=== PATIENT | female | born 1955 | race Caucasian/White ===

== ENCOUNTER 2017-05-28 12:21 | Inpatient (IN) ==
[~2017-05-28 12:21] MED LIST: DIPH/TET/ACEL PERT BOOSTER VACCINE 0.5 ML VIAL IM ONE; LACTATED RINGERS 2,000 ML IV STA
[2017-05-28] MEDS ORDERED: ceFAZolin 1,000 MG VIAL ONE (12:45)
[2017-05-28] MEDS ORDERED: DIPH/TET/ACEL PERT BOOSTER VACCINE 0.5 ML VIAL IM ONE (12:46)
[2017-05-28 12:54] LABS: ABG Base Excess -9.7 MMOL/L (-2.5-2.5); ABG HCO3 16.6 MMOL/L (20-26); ABG Oxygen Saturation 95.8 % (95-100); ABG PH 7.338 (7.35-7.45); ABG PO2 86.7 MM HG (80-95); ABG TCO2 13.9 MMOL/L (23-27)
[2017-05-28 13:17] LABS: Basophils % 0.3 % (0.0-0.8); Eosinophils % 0.1 % (0.00-10.9); Hematocrit 38.3 VOL% (35.7-47.0); Immature Granulocytes % 0.4 %; Immature Granulocytes Absolute 0.03 #; Lymphocytes % 13.9 % (21.3-54.2); Mean Corpuscular HGB Conc 33.9 GM/DL (32-36); Mean Corpuscular Hemoglobin 31 PG (27-34); Mean Corpuscular Volume 90.5 FL (87-102); Mean Platelet Volume 10.9 FL (9.6-12.0); Monocytes # 0.7 10*3/uL (0.11-0.8); Monocytes % 9.1 % (1.7-12.7); Neutrophils # 5.5 10*3/uL (1.4-7.4); Neutrophils % 76.2 % (38.7-73.9); Platelet Count 41 T/CUMM (130-400); Red Blood Count 4.23 MC/CUMM (3.8-5.5); Red Cell Distribution Width 16.2 % (9.3-17.3); White Blood Count 7.3 T/CUMM (4-12)
[2017-05-28 13:22] LABS: Alanine Aminotransferase 41 U/L (13-56); Albumin 2.4 G/DL (3.4-5.0); Alkaline Phosphatase 101 U/L (45-117); Amylase 47 U/L (25-115); Aspartate Amino Transferase 102 U/L (0-37); Blood Urea Nitrogen 32 MG/DL (7-18); Calcium 8.1 MG/DL (8.5-10.1); Glucose 59 MG/DL (74-106); Osmolality,Calculated 309.4 MOS/KG (273-304); Sodium 154 MMOL/L (136-145); Total Protein 6.4 G/DL (6.4-8.3)
[2017-05-28 13:30] LABS: Apearance,Urine CLEAR (Clear); Bacteria,Urine Occasional /HPF (Few); Bilirubin,Urine Negative (Negative); Blood, Urine Negative (Negative); Glucose,Urine (UA) Negative (Negative); Hyaline Casts,Urine 11 /LPF (0-3); Ketones,Urine Negative (Negative); Mucus,Urine Occasional /LPF (Occasional); Nitrite,Urine Negative (Negative); Protein,Urine Negative; RBC,Urine 4 /HPF (0-4); Squamous Epithelial Cell,Urine Occasional /HPF (0-10); Urine Color Amber (Yellow); Urine Specific Gravity 1.014 (1.001-1.035); WBC,Urine 1 /HPF (0-6)
[2017-05-28 13:34] LABS: Hypochromasia 1+
[2017-05-28 14:07] LABS: Barbiturates Screen,Urine Negative (Negative); Benzodiazepines Screen,Urine Positive (Negative); Cannabinoid Screen,Urine Positive (Negative); Opiate Screen,Urine Negative (Negative); Phencyclidine Screen,Urine Negative (Negative)
[2017-05-28 14:19] LABS: INR 1.5; PT Patient Result 15.5 SECS; Partial Thromboplastin Time 27.6 SECS (0-40)
[2017-05-28 14:37] LABS: Lactic Acid 3.5 MMOL/L (0.4-2.0)
[2017-05-28] MEDS ORDERED: PIPERACILLIN/TAZOBACTAM 3,375 MG in SODIUM CHLORIDE 0.9% 100 ML IV STA (14:49)
[2017-05-28] MEDS ORDERED: DEXTROSE 50% 25 GM/50 ML VIAL IV STA (14:51)
[2017-05-28] MEDS ORDERED: DEXTROSE 50% 25 GM/50 ML SYRINGE IV ONE (14:57)
[2017-05-28] MEDS ORDERED: SODIUM CHLORIDE 0.9% 1,000 ML IV SCH (15:00)
[2017-05-28] MEDS ORDERED: ONDANSETRON 4 MG/2 ML VIAL IV PRN (15:38)
[2017-05-28] MEDS ORDERED: ALBUTEROL 2.5 MG/3 ML NEB RESP TX PRN (15:38)
[2017-05-28] MEDS ORDERED: PIPERACILLIN/TAZOBACTAM 3,375 MG VIAL IV ONE (15:52)
[2017-05-28] MEDS ORDERED: POTASSIUM CHLORIDE RIDER 10 MEQ in PREMIX 1 EACH IV PRN (15:57)
[2017-05-28] MEDS ORDERED: PANTOPRAZOLE 40 MG VIAL IV SCH (16:00)
[2017-05-28] MEDS ORDERED: CLINDAMYCIN INJ 600 MG in PREMIX 1 EACH IV SCH (16:00)
[2017-05-28] MEDS ORDERED: ENOXAPARIN 30 MG/0.3 ML SYRINGE SUBCUT SCH ×2 (16:00→16:30)
[2017-05-28] MEDS: ENOXAPARIN 30 MG/0.3 ML SYRINGE SUBCUT SCH (18:33)
[2017-05-28] MEDS: PANTOPRAZOLE 40 MG VIAL IV SCH (18:33)
[2017-05-28] MEDS: SODIUM BICARB INJ 100 MEQ in DEXTROSE 5% 1,000 ML IV SCH (18:33)
[2017-05-28] MEDS: ALBUTEROL/IPRATROPIUM 3 ML NEB RESP TX SCH (19:57)
[2017-05-28] MEDS: MORPHINE 2 MG/1 ML SYRINGE IV PRN (20:16)
[2017-05-28 20:45] LABS: Lactic Acid 3.1 MMOL/L (0.4-2.0)
[2017-05-28 20:59] LABS: Free T4 (Free Thyroxine) 1.29 NG/DL (0.76-1.46); Thyroid Stimulating Hormone 1.08 uIU/ml (0.358-3.74)
[2017-05-28 21:15] LABS: Troponin I Only 1.52 NG/ML (0.00-0.045)
[2017-05-28] MEDS: LACTULOSE 160 GM/240 ML BOTTLE RECTAL SCH (23:00)
[2017-05-29 00:38] LABS: Lactic Acid 2.5 MMOL/L (0.4-2.0)
[2017-05-29] MEDS: PIPERACILLIN/TAZOBACTAM 3,375 MG in SODIUM CHLORIDE 0.9% 100 ML IV SCH ×3 (00:53→16:31)
[2017-05-29] MEDS: MORPHINE 2 MG/1 ML SYRINGE IV PRN (01:12)
[2017-05-29] MEDS: ALBUTEROL/IPRATROPIUM 3 ML NEB RESP TX SCH ×4 (01:36→20:04)
[2017-05-29] MEDS: CLINDAMYCIN INJ 600 MG in PREMIX 1 EACH IV SCH ×3 (02:20→17:49)
[2017-05-29] MEDS: LACTULOSE 160 GM/240 ML BOTTLE RECTAL SCH ×3 (04:10→16:08)
[2017-05-29] MEDS: SODIUM BICARB INJ 100 MEQ in DEXTROSE 5% 1,000 ML IV SCH ×2 (04:36→16:29)
[2017-05-29 07:37] LABS: Basophils % 0.2 % (0.0-0.8); Eosinophils # 0.1 10*3/uL (0.0-0.87); Eosinophils % 0.8 % (0.00-10.9); Hematocrit 24.7 VOL% (35.7-47.0); Immature Granulocytes % 0.4 %; Immature Granulocytes Absolute 0.03 #; Lymphocytes # 2.1 10*3/uL (1.4-4.0); Lymphocytes % 24.7 % (21.3-54.2); Mean Corpuscular Hemoglobin 31 PG (27-34); Mean Corpuscular Volume 89.8 FL (87-102); Mean Platelet Volume 12.4 FL (9.6-12.0); Monocytes # 0.9 10*3/uL (0.11-0.8); Monocytes % 10.5 % (1.7-12.7); Neutrophils # 5.4 10*3/uL (1.4-7.4); Neutrophils % 63.4 % (38.7-73.9); Red Blood Count 2.75 MC/CUMM (3.8-5.5); Red Cell Distribution Width 16.6 % (9.3-17.3); White Blood Count 8.5 T/CUMM (4-12)
[2017-05-29 07:45] LABS: Hemoglobin 8.4 GM/DL (12.0-16.0); Platelet Count 59 T/CUMM (130-400)
[2017-05-29 08:00] LABS: Lactic Acid 2.9 MMOL/L (0.4-2.0)
[2017-05-29 08:01] LABS: Giant Platelets Few; Hypochromasia 1+; Microcytosis Slight; Ovalocytes Slight
[2017-05-29 08:02] LABS: Platelet Estimate Decreased
[2017-05-29 08:25] LABS: Albumin 2.2 G/DL (3.4-5.0); Bilirubin,Total 2.2 MG/DL (0.2-1.0); Calcium 7.5 MG/DL (8.5-10.1); Osmolality,Calculated 310.9 MOS/KG (273-304); Potassium 3.8 MMOL/L (3.5-5.1); Total Protein 5.8 G/DL (6.4-8.3)
[2017-05-29] MEDS: PANTOPRAZOLE 40 MG VIAL IV SCH (09:37)
[2017-05-29] MEDS: ZIPRASIDONE 20 MG/1 ML VIAL IM PRN ×2 (11:45→18:18)
[2017-05-29] MEDS: MUPIROCIN 2% OINT 22 GM TUBE TOP SCH (13:27)
[2017-05-29] MEDS ORDERED: SODIUM CHLORIDE 0.9% 1,000 ML IV PRN (16:15)
[2017-05-29] MEDS ORDERED: ENOXAPARIN 30 MG/0.3 ML SYRINGE SUBCUT SCH (16:30)
[2017-05-29] MEDS: ENOXAPARIN 30 MG/0.3 ML SYRINGE SUBCUT SCH (17:19)
[2017-05-29] MEDS ORDERED: LABETALOL 20 MG/4 ML SYRINGE IV PRN (19:16)
[2017-05-29] MEDS ORDERED: SUCCINYLCHOLINE 200 MG/10 ML VIAL ONE (19:28)
[2017-05-29] MEDS ORDERED: ETOMIDATE 20 MG/10 ML VIAL IV ONE (19:28)
[2017-05-29] MEDS ORDERED: PROPOFOL 0 MG/0 ML BOTTLE IV ONE (19:31)
[2017-05-29 19:44] LABS: ABG Base Excess 0.8 MMOL/L (-2.5-2.5); ABG HCO3 22.5 MMOL/L (20-26); ABG Oxygen Saturation 96.5 % (95-100); ABG PCO2 25.8 MM HG (35-48); ABG PH 7.558 (7.35-7.45); ABG PO2 91.3 MM HG (80-95); ABG TCO2 23.3 MMOL/L (23-27)
[2017-05-29 20:25] LABS: % Iron Saturation 45.2 % (18-50)
[2017-05-29] MEDS ORDERED: LACTULOSE 20 GM/30 ML UDCUP PO SCH (21:00)
[2017-05-29 21:23] LABS: Hepatitis A Ab IgM Quant 0.14 Index; Hepatitis A Ab IgM Result Negative (Negative); Hepatitis B Core IgM Quant 0.18 Index; Hepatitis B Core IgM Result Negative (Negative); Hepatitis B Surface Ag Quant 0.12 Index; Hepatitis B Surface Ag Result Negative (Negative); Hepatitis C Virus Ab Quant > 11.00 Index; Hepatitis C Virus Ab Result Positive (Negative)
[2017-05-29] MEDS: LACTULOSE 20 GM/30 ML UDCUP NG SCH (21:29)
[2017-05-29] MEDS: FOLIC ACID IV SCH (21:31)
[2017-05-29] MEDS: [UNRECOGNIZED DRUG - OTHER] IV SCH (21:31)
[2017-05-29] MEDS: SODIUM BICARB IV SCH (21:31)
[2017-05-29] MEDS: MULTIVITAMIN IV SCH (21:31)
[2017-05-29] MEDS: THIAMINE 200 MG/2 ML VIAL IV SCH (23:03)
[2017-05-30] MEDS: PIPERACILLIN/TAZOBACTAM 3,375 MG in SODIUM CHLORIDE 0.9% 100 ML IV SCH ×4 (00:08→23:49)
[2017-05-30] MEDS: CLINDAMYCIN INJ 600 MG in PREMIX 1 EACH IV SCH ×3 (02:56→17:20)
[2017-05-30] MEDS: ZIPRASIDONE 20 MG/1 ML VIAL IM PRN ×3 (04:56→20:36)
[2017-05-30 05:26] LABS: Albumin 2.1 G/DL (3.4-5.0); Bilirubin,Direct 1.33 MG/DL (0.0-0.20); Bilirubin,Indirect 1.5 MG/DL (0.0-1.0); Bilirubin,Total 2.8 MG/DL (0.2-1.0); Total Protein 5.5 G/DL (6.4-8.3)
[2017-05-30 05:52] LABS: Ammonia 178 UMOL/L (11-32)
[2017-05-30 06:24] LABS: Prealbumin 5.4 MG/DL (20-40)
[2017-05-30] MEDS: ALBUTEROL/IPRATROPIUM 3 ML NEB RESP TX SCH ×3 (07:19→19:55)
[2017-05-30] MEDS: LACTULOSE 20 GM/30 ML UDCUP NG SCH ×4 (09:00→20:37)
[2017-05-30] MEDS: PANTOPRAZOLE 40 MG VIAL IV SCH (09:15)
[2017-05-30] MEDS: MUPIROCIN 2% OINT 22 GM TUBE TOP SCH (09:15)
[2017-05-30] MEDS: MORPHINE 2 MG/1 ML SYRINGE IV PRN ×3 (11:40→23:49)
[2017-05-30] MEDS ORDERED: DEXTROSE 50% 25 GM/50 ML VIAL IV PRN (15:07)
[2017-05-30] MEDS ORDERED: GLUCAGON 1 MG VIAL IM PRN (15:07)
[2017-05-30] MEDS: INSULIN REGULAR 100 UNIT/ML SUBCUT SCH ×2 (16:00→20:36)
[2017-05-30] MEDS: FAT EMULSION 20% 250 ML IV SCH (16:05)
[2017-05-30] MEDS ORDERED: DEXT IV SCH (17:00)
[2017-05-30] MEDS ORDERED: LYTE IV SCH (17:00)
[2017-05-30] MEDS ORDERED: DEXTROSE 10% 1,000 ML IV PRN (17:00)
[2017-05-30] MEDS ORDERED: AMINO ACIDS IV SCH (17:00)
[2017-05-30] MEDS ORDERED: INSULIN REGULAR 100 UNIT/ML SUBCUT SCH (18:00)
[2017-05-30] MEDS: MULTIVITAMIN IV SCH (20:37)
[2017-05-30] MEDS: SODIUM BICARB IV SCH (20:37)
[2017-05-30] MEDS: FOLIC ACID IV SCH (20:37)
[2017-05-30] MEDS: [UNRECOGNIZED DRUG - OTHER] IV SCH (20:37)
[2017-05-30] MEDS: THIAMINE 200 MG/2 ML VIAL IV SCH (22:24)
[2017-05-31] MEDS: ALBUTEROL/IPRATROPIUM 3 ML NEB RESP TX SCH ×4 (01:00→19:41)
[2017-05-31] MEDS: INSULIN REGULAR 100 UNIT/ML SUBCUT SCH ×6 (01:15→20:51)
[2017-05-31] MEDS: CLINDAMYCIN INJ 600 MG in PREMIX 1 EACH IV SCH ×3 (02:24→17:50)
[2017-05-31 05:31] LABS: Basophils % 0.7 % (0.0-0.8); Eosinophils # 0.2 10*3/uL (0.0-0.87); Eosinophils % 4.4 % (0.00-10.9); Hematocrit 22.8 VOL% (35.7-47.0); Hemoglobin 7.5 GM/DL (12.0-16.0); Immature Granulocytes % 0.9 %; Immature Granulocytes Absolute 0.04 #; Lymphocytes # 1.3 10*3/uL (1.4-4.0); Lymphocytes % 29.7 % (21.3-54.2); Mean Corpuscular HGB Conc 32.9 GM/DL (32-36); Mean Corpuscular Hemoglobin 31 PG (27-34); Mean Corpuscular Volume 94.2 FL (87-102); Mean Platelet Volume 11.7 FL (9.6-12.0); Monocytes # 0.6 10*3/uL (0.11-0.8); Monocytes % 13.8 % (1.7-12.7); Neutrophils # 2.2 10*3/uL (1.4-7.4); Neutrophils % 50.5 % (38.7-73.9); Red Blood Count 2.42 MC/CUMM (3.8-5.5); Red Cell Distribution Width 16.1 % (9.3-17.3); White Blood Count 4.3 T/CUMM (4-12)
[2017-05-31 05:33] LABS: Platelet Count 47 T/CUMM (130-400)
[2017-05-31 05:54] LABS: Hypochromasia 1+; Ovalocytes Slight; Platelet Estimate Decreased
[2017-05-31 05:55] LABS: Microcytosis Slight
[2017-05-31 06:06] LABS: Albumin 2.3 G/DL (3.4-5.0); Bilirubin,Direct 1.7 MG/DL (0.0-0.20); Bilirubin,Indirect 2.1 MG/DL (0.0-1.0); Bilirubin,Total 3.8 MG/DL (0.2-1.0); Total Protein 5.6 G/DL (6.4-8.3)
[2017-05-31 06:07] LABS: Ammonia 74 UMOL/L (11-32)
[2017-05-31 06:09] LABS: Albumin 2.1 G/DL (3.4-5.0); Bilirubin,Total 3.5 MG/DL (0.2-1.0); Calcium 7.4 MG/DL (8.5-10.1); Osmolality,Calculated 294.6 MOS/KG (273-304); Potassium 3.7 MMOL/L (3.5-5.1); Total Protein 5.6 G/DL (6.4-8.3)
[2017-05-31] MEDS: PIPERACILLIN/TAZOBACTAM 3,375 MG in SODIUM CHLORIDE 0.9% 100 ML IV SCH ×2 (07:30→16:00)
[2017-05-31] MEDS: ZIPRASIDONE 20 MG/1 ML VIAL IM PRN (08:40)
[2017-05-31] MEDS: PANTOPRAZOLE 40 MG VIAL IV SCH (08:45)
[2017-05-31] MEDS: MORPHINE 2 MG/1 ML SYRINGE IV PRN ×3 (08:55→21:27)
[2017-05-31] MEDS: MUPIROCIN 2% OINT 22 GM TUBE TOP SCH (09:00)
[2017-05-31] MEDS: LACTULOSE 20 GM/30 ML UDCUP NG SCH ×4 (09:00→20:52)
[2017-05-31] MEDS ORDERED: SODIUM CHLORIDE 0.9% 1,000 ML IV PRN (09:12)
[2017-05-31] MEDS: FAT EMULSION 20% 250 ML IV SCH (16:00)
[2017-05-31] MEDS ORDERED: AMINO ACIDS IV SCH (17:00)
[2017-05-31] MEDS ORDERED: LYTE IV SCH (17:00)
[2017-05-31] MEDS ORDERED: DEXT IV SCH (17:00)
[2017-05-31] MEDS: FOLIC ACID IV SCH (20:53)
[2017-05-31] MEDS: MULTIVITAMIN IV SCH (20:53)
[2017-05-31] MEDS: SODIUM BICARB IV SCH (20:53)
[2017-05-31] MEDS: [UNRECOGNIZED DRUG - OTHER] IV SCH (20:53)
[2017-05-31] MEDS: THIAMINE 200 MG/2 ML VIAL IV SCH (21:28)
[2017-06-01] MEDS: ALBUTEROL/IPRATROPIUM 3 ML NEB RESP TX SCH ×5 (01:39→19:54)
[2017-06-01] MEDS: CLINDAMYCIN INJ 600 MG in PREMIX 1 EACH IV SCH ×3 (02:00→18:40)
[2017-06-01] MEDS: INSULIN REGULAR 100 UNIT/ML SUBCUT SCH ×6 (02:15→20:45)
[2017-06-01 04:32] LABS: Basophils % 0.7 % (0.0-0.8); Eosinophils # 0.3 10*3/uL (0.0-0.87); Eosinophils % 4.2 % (0.00-10.9); Hematocrit 27.1 VOL% (35.7-47.0); Hemoglobin 9.1 GM/DL (12.0-16.0); Immature Granulocytes % 2.7 %; Immature Granulocytes Absolute 0.16 #; Lymphocytes # 1.4 10*3/uL (1.4-4.0); Lymphocytes % 22.8 % (21.3-54.2); Mean Corpuscular HGB Conc 33.6 GM/DL (32-36); Mean Corpuscular Hemoglobin 31 PG (27-34); Mean Corpuscular Volume 93.1 FL (87-102); Mean Platelet Volume 11.9 FL (9.6-12.0); Monocytes % 16.6 % (1.7-12.7); NRBC # 0.04 10*3/uL; Neutrophils # 3.2 10*3/uL (1.4-7.4); Platelet Count 57 T/CUMM (130-400); Red Blood Count 2.91 MC/CUMM (3.8-5.5); Red Cell Distribution Width 16.4 % (9.3-17.3)
[2017-06-01 04:57] LABS: Albumin 2.1 G/DL (3.4-5.0); Bilirubin,Direct 1.72 MG/DL (0.0-0.20); Bilirubin,Indirect 1.9 MG/DL (0.0-1.0); Bilirubin,Total 3.6 MG/DL (0.2-1.0); Total Protein 5.6 G/DL (6.4-8.3)
[2017-06-01 04:59] LABS: Albumin 2.6 G/DL (3.4-5.0); Bilirubin,Total 0.6 MG/DL (0.2-1.0); Osmolality,Calculated 275.1 MOS/KG (273-304); Potassium 4.1 MMOL/L (3.5-5.1); Total Protein 5.3 G/DL (6.4-8.3)
[2017-06-01 05:03] LABS: Eosinophils 6 % (0-10); Lymphocytes 17 % (20-55); Segmented Neutrophils 63 % (50-85); Total Cells Counted 100
[2017-06-01 05:04] LABS: Giant Platelets Few; Hypochromasia 1+; Ovalocytes Slight; Platelet Estimate Decreased
[2017-06-01 06:18] LABS: Basophils % 0.7 % (0.0-0.8); Eosinophils # 0.2 10*3/uL (0.0-0.87); Hematocrit 27.6 VOL% (35.7-47.0); Hemoglobin 9.2 GM/DL (12.0-16.0); Immature Granulocytes % 2.9 %; Immature Granulocytes Absolute 0.17 #; Lymphocytes # 1.4 10*3/uL (1.4-4.0); Lymphocytes % 23.2 % (21.3-54.2); Mean Corpuscular HGB Conc 33.3 GM/DL (32-36); Mean Corpuscular Hemoglobin 31 PG (27-34); Mean Corpuscular Volume 93.6 FL (87-102); Mean Platelet Volume 12.4 FL (9.6-12.0); Monocytes # 0.9 10*3/uL (0.11-0.8); NRBC # 0.04 10*3/uL; Neutrophils # 3.1 10*3/uL (1.4-7.4); Neutrophils % 53.2 % (38.7-73.9); Red Blood Count 2.95 MC/CUMM (3.8-5.5); Red Cell Distribution Width 16.3 % (9.3-17.3); White Blood Count 5.8 T/CUMM (4-12)
[2017-06-01 06:21] LABS: Platelet Count 62 T/CUMM (130-400)
[2017-06-01 06:40] LABS: Ammonia 52 UMOL/L (11-32)
[2017-06-01 06:43] LABS: Band Neutrophils 1 % (0-10); Eosinophils 7 % (0-10); Giant Platelets Few; Hypochromasia 1+; Lymphocytes 23 % (20-55); Microcytosis Slight; Nucleated Red Blood Cells 1 (0-5); Ovalocytes Slight; Platelet Estimate Decreased; Segmented Neutrophils 59 % (50-85); Total Cells Counted 100
[2017-06-01 07:11] LABS: Bilirubin,Total 3.9 MG/DL (0.2-1.0); Calcium 7.3 MG/DL (8.5-10.1); Osmolality,Calculated 293.6 MOS/KG (273-304); Potassium 3.6 MMOL/L (3.5-5.1); Total Protein 5.6 G/DL (6.4-8.3)
[2017-06-01] MEDS: PIPERACILLIN/TAZOBACTAM 3,375 MG in SODIUM CHLORIDE 0.9% 100 ML IV SCH ×4 (07:53→23:56)
[2017-06-01] MEDS: MORPHINE 2 MG/1 ML SYRINGE IV PRN (07:59)
[2017-06-01] MEDS: LACTULOSE 20 GM/30 ML UDCUP NG SCH (08:01)
[2017-06-01] MEDS: PANTOPRAZOLE 40 MG VIAL IV SCH (08:01)
[2017-06-01] MEDS: MUPIROCIN 2% OINT 22 GM TUBE TOP SCH (08:01)
[2017-06-01] MEDS: LACTULOSE 20 GM/30 ML UDCUP PO SCH ×3 (14:46→21:07)
[2017-06-01] MEDS: FAT EMULSION 20% 250 ML IV SCH (16:41)
[2017-06-01] MEDS: MORPHINE 4 MG/1 ML VIAL IV PRN (17:37)
[2017-06-01] MEDS: THIAMINE 200 MG/2 ML VIAL IV SCH (21:03)
[2017-06-01] MEDS: MULTIVITAMIN IV SCH (21:07)
[2017-06-01] MEDS: SODIUM BICARB IV SCH (21:07)
[2017-06-01] MEDS: FOLIC ACID IV SCH (21:07)
[2017-06-01] MEDS: [UNRECOGNIZED DRUG - OTHER] IV SCH (21:07)
[2017-06-02] MEDS: CLINDAMYCIN INJ 600 MG in PREMIX 1 EACH IV SCH ×3 (01:20→17:41)
[2017-06-02] MEDS: ALBUTEROL/IPRATROPIUM 3 ML NEB RESP TX SCH ×4 (02:00→20:28)
[2017-06-02] MEDS: MORPHINE 4 MG/1 ML VIAL IV PRN (03:59)
[2017-06-02 04:16] LABS: Ammonia 62 UMOL/L (11-32)
[2017-06-02 04:21] LABS: Calcium 7.3 MG/DL (8.5-10.1); Potassium 3.8 MMOL/L (3.5-5.1)
[2017-06-02 04:24] LABS: Bilirubin,Direct 2.4 MG/DL (0.0-0.20); Bilirubin,Indirect 2.2 MG/DL (0.0-1.0); Bilirubin,Total 4.6 MG/DL (0.2-1.0); Total Protein 5.7 G/DL (6.4-8.3)
[2017-06-02] MEDS: PANTOPRAZOLE 40 MG VIAL IV SCH (08:02)
[2017-06-02] MEDS: PIPERACILLIN/TAZOBACTAM 3,375 MG in SODIUM CHLORIDE 0.9% 100 ML IV SCH ×3 (08:02→23:36)
[2017-06-02] MEDS: LACTULOSE 20 GM/30 ML UDCUP PO SCH ×4 (08:02→20:26)
[2017-06-02] MEDS: INSULIN REGULAR 100 UNIT/ML SUBCUT SCH ×4 (08:38→20:24)
[2017-06-02] MEDS: MUPIROCIN 2% OINT 22 GM TUBE TOP SCH (09:33)
[2017-06-02] MEDS: THIAMINE 200 MG/2 ML VIAL IV SCH ×2 (20:26→21:01)
[2017-06-02] MEDS: [UNRECOGNIZED DRUG - OTHER] IV SCH (20:31)
[2017-06-02] MEDS: MULTIVITAMIN IV SCH (20:31)
[2017-06-02] MEDS: FOLIC ACID IV SCH (20:31)
[2017-06-02] MEDS: SODIUM BICARB IV SCH (20:31)
[2017-06-02] MEDS ORDERED: KETOROLAC 15 MG/1 ML VIAL IV ONE (21:00)
[2017-06-03] MEDS: ALBUTEROL/IPRATROPIUM 3 ML NEB RESP TX SCH ×4 (00:22→19:33)
[2017-06-03] MEDS: CLINDAMYCIN INJ 600 MG in PREMIX 1 EACH IV SCH ×3 (02:33→20:39)
[2017-06-03 07:06] LABS: Calcium 7.2 MG/DL (8.5-10.1); Osmolality,Calculated 286.3 MOS/KG (273-304); Potassium 3.1 MMOL/L (3.5-5.1)
[2017-06-03 07:07] LABS: Albumin 1.9 G/DL (3.4-5.0); Bilirubin,Direct 2.32 MG/DL (0.0-0.20); Bilirubin,Indirect 1.9 MG/DL (0.0-1.0); Bilirubin,Total 4.2 MG/DL (0.2-1.0); Total Protein 5.4 G/DL (6.4-8.3)
[2017-06-03 07:09] LABS: Ammonia 50 UMOL/L (11-32)
[2017-06-03 07:10] LABS: Basophils # 0.1 10*3/uL (0.0-0.2); Eosinophils # 0.3 10*3/uL (0.0-0.87); Eosinophils % 4.6 % (0.00-10.9); Hematocrit 26.2 VOL% (35.7-47.0); Hemoglobin 8.8 GM/DL (12.0-16.0); Immature Granulocytes % 3.7 %; Immature Granulocytes Absolute 0.25 #; Lymphocytes # 1.7 10*3/uL (1.4-4.0); Lymphocytes % 25.3 % (21.3-54.2); Mean Corpuscular HGB Conc 33.6 GM/DL (32-36); Mean Corpuscular Hemoglobin 31 PG (27-34); Mean Corpuscular Volume 92.3 FL (87-102); Monocytes # 1.5 10*3/uL (0.11-0.8); Neutrophils # 2.9 10*3/uL (1.4-7.4); Neutrophils % 43.4 % (38.7-73.9); Platelet Count 90 T/CUMM (130-400); Red Blood Count 2.84 MC/CUMM (3.8-5.5); Red Cell Distribution Width 18.6 % (9.3-17.3); White Blood Count 6.8 T/CUMM (4-12)
[2017-06-03] MEDS: INSULIN REGULAR 100 UNIT/ML SUBCUT SCH ×4 (07:44→20:45)
[2017-06-03 08:04] LABS: Band Neutrophils 3 % (0-10); Eosinophils 2 % (0-10); Lymphocytes 30 % (20-55); Macrocytosis 1+; Platelet Estimate Increased; Segmented Neutrophils 57 % (50-85); Total Cells Counted 100
[2017-06-03] MEDS: LACTULOSE 20 GM/30 ML UDCUP PO SCH ×4 (08:36→20:45)
[2017-06-03] MEDS: PANTOPRAZOLE 40 MG VIAL IV SCH (08:36)
[2017-06-03] MEDS: FUROSEMIDE 20 MG TABLET PO SCH (08:36)
[2017-06-03] MEDS: POTASSIUM CHLORIDE 20 MEQ TABLET PO PRN ×3 (08:37→19:03)
[2017-06-03] MEDS: SPIRONOLACTONE 50 MG TABLET PO SCH (08:37)
[2017-06-03] MEDS: MUPIROCIN 2% OINT 22 GM TUBE TOP SCH (08:37)
[2017-06-03] MEDS: PIPERACILLIN/TAZOBACTAM 3,375 MG in SODIUM CHLORIDE 0.9% 100 ML IV SCH ×3 (08:37→23:25)
[2017-06-03] MEDS: [UNRECOGNIZED DRUG - OTHER] IV SCH (20:38)
[2017-06-03] MEDS: MULTIVITAMIN IV SCH (20:38)
[2017-06-03] MEDS: SODIUM BICARB IV SCH (20:38)
[2017-06-03] MEDS: FOLIC ACID IV SCH (20:38)
[2017-06-03] MEDS: THIAMINE 200 MG/2 ML VIAL IV SCH (21:14)
[2017-06-04] MEDS: ALBUTEROL/IPRATROPIUM 3 ML NEB RESP TX SCH ×4 (00:13→19:15)
[2017-06-04] MEDS: CLINDAMYCIN INJ 600 MG in PREMIX 1 EACH IV SCH ×3 (04:07→21:30)
[2017-06-04] MEDS: POTASSIUM CHLORIDE 20 MEQ TABLET PO PRN ×3 (04:43→18:18)
[2017-06-04 06:49] LABS: Ammonia 33 UMOL/L (11-32)
[2017-06-04 06:56] LABS: Osmolality,Calculated 281.5 MOS/KG (273-304); Potassium 3.2 MMOL/L (3.5-5.1); Prealbumin 3.1 MG/DL (20-40)
[2017-06-04 07:04] LABS: Albumin 1.8 G/DL (3.4-5.0); Bilirubin,Direct 2.16 MG/DL (0.0-0.20); Bilirubin,Indirect 1.5 MG/DL (0.0-1.0); Bilirubin,Total 3.7 MG/DL (0.2-1.0); Total Protein 5.2 G/DL (6.4-8.3)
[2017-06-04] MEDS: INSULIN REGULAR 100 UNIT/ML SUBCUT SCH ×4 (07:32→21:41)
[2017-06-04] MEDS: PANTOPRAZOLE 40 MG VIAL IV SCH ×2 (07:33→08:04)
[2017-06-04] MEDS: PIPERACILLIN/TAZOBACTAM 3,375 MG in SODIUM CHLORIDE 0.9% 100 ML IV SCH ×2 (07:33→16:32)
[2017-06-04] MEDS: MUPIROCIN 2% OINT 22 GM TUBE TOP SCH (08:03)
[2017-06-04] MEDS: FUROSEMIDE 20 MG TABLET PO SCH (08:03)
[2017-06-04] MEDS: LACTULOSE 20 GM/30 ML UDCUP PO SCH ×2 (08:03→20:27)
[2017-06-04] MEDS: SPIRONOLACTONE 50 MG TABLET PO SCH (08:03)
[2017-06-04] MEDS: DESITIN 4OZ/NYSTATIN 15 GRAM MIXTURE PASTE TOP SCH (08:04)
[2017-06-04] MEDS ORDERED: DIAZEPAM 5 MG TABLET PO ONE (08:22)
[2017-06-04 08:52] LABS: Basophils # 0.1 10*3/uL (0.0-0.2); Basophils % 0.6 % (0.0-0.8); Eosinophils # 0.3 10*3/uL (0.0-0.87); Eosinophils % 3.1 % (0.00-10.9); Hematocrit 26.8 VOL% (35.7-47.0); Immature Granulocytes % 2.1 %; Immature Granulocytes Absolute 0.17 #; Lymphocytes # 1.9 10*3/uL (1.4-4.0); Lymphocytes % 22.8 % (21.3-54.2); Mean Corpuscular HGB Conc 33.6 GM/DL (32-36); Mean Corpuscular Hemoglobin 31 PG (27-34); Mean Corpuscular Volume 92.1 FL (87-102); Mean Platelet Volume 11.5 FL (9.6-12.0); Monocytes # 1.5 10*3/uL (0.11-0.8); Monocytes % 18.3 % (1.7-12.7); Neutrophils # 4.3 10*3/uL (1.4-7.4); Neutrophils % 53.1 % (38.7-73.9); Platelet Count 114 T/CUMM (130-400); Red Blood Count 2.91 MC/CUMM (3.8-5.5); White Blood Count 8.2 T/CUMM (4-12)
[2017-06-04 09:00] LABS: INR 1.3; PT Patient Result 13.1 SECS
[2017-06-04 09:52] LABS: Band Neutrophils 3 % (0-10); Eosinophils 5 % (0-10); Giant Platelets Few; Hypochromasia 1+; Lymphocytes 17 % (20-55); Microcytosis Slight; Platelet Estimate Decreased; Segmented Neutrophils 61 % (50-85); Total Cells Counted 100
[2017-06-04] MEDS: [UNRECOGNIZED DRUG - OTHER] IV SCH (20:27)
[2017-06-04] MEDS: FOLIC ACID IV SCH (20:27)
[2017-06-04] MEDS: MULTIVITAMIN IV SCH (20:27)
[2017-06-04] MEDS: SODIUM BICARB IV SCH (20:27)
[2017-06-05] MEDS: ALBUTEROL/IPRATROPIUM 3 ML NEB RESP TX SCH ×3 (00:27→14:23)
[2017-06-05] MEDS: THIAMINE 200 MG/2 ML VIAL IV SCH (01:28)
[2017-06-05] MEDS: DESITIN 4OZ/NYSTATIN 15 GRAM MIXTURE PASTE TOP SCH ×2 (01:40→08:12)
[2017-06-05] MEDS: PIPERACILLIN/TAZOBACTAM 3,375 MG in SODIUM CHLORIDE 0.9% 100 ML IV SCH ×2 (01:59→08:10)
[2017-06-05] MEDS: CLINDAMYCIN INJ 600 MG in PREMIX 1 EACH IV SCH ×2 (06:09→12:09)
[2017-06-05 06:44] LABS: Basophils % 0.5 % (0.0-0.8); Eosinophils # 0.2 10*3/uL (0.0-0.87); Eosinophils % 2.4 % (0.00-10.9); Hematocrit 25.7 VOL% (35.7-47.0); Hemoglobin 8.6 GM/DL (12.0-16.0); Immature Granulocytes % 2.5 %; Lymphocytes # 2.1 10*3/uL (1.4-4.0); Lymphocytes % 26.9 % (21.3-54.2); Mean Corpuscular HGB Conc 33.5 GM/DL (32-36); Mean Corpuscular Hemoglobin 31 PG (27-34); Mean Corpuscular Volume 91.5 FL (87-102); Mean Platelet Volume 11.6 FL (9.6-12.0); Monocytes # 1.2 10*3/uL (0.11-0.8); Monocytes % 15.3 % (1.7-12.7); Neutrophils # 4.2 10*3/uL (1.4-7.4); Neutrophils % 52.4 % (38.7-73.9); Platelet Count 116 T/CUMM (130-400); Red Blood Count 2.81 MC/CUMM (3.8-5.5); Red Cell Distribution Width 19.4 % (9.3-17.3)
[2017-06-05 07:12] LABS: Calcium 7.1 MG/DL (8.5-10.1); Osmolality,Calculated 279.5 MOS/KG (273-304); Potassium 3.6 MMOL/L (3.5-5.1)
[2017-06-05] MEDS: INSULIN REGULAR 100 UNIT/ML SUBCUT SCH ×2 (07:56→11:50)
[2017-06-05] MEDS: FUROSEMIDE 20 MG TABLET PO SCH (08:12)
[2017-06-05] MEDS: LACTULOSE 20 GM/30 ML UDCUP PO SCH (08:12)
[2017-06-05] MEDS: MUPIROCIN 2% OINT 22 GM TUBE TOP SCH (08:12)
[2017-06-05] MEDS: PANTOPRAZOLE 40 MG VIAL IV SCH (08:12)
[2017-06-05] MEDS: SPIRONOLACTONE 50 MG TABLET PO SCH (08:12)
[2017-06-05 12:45] VITALS: BP 141/58
== END 2017-06-05 14:30 | disposition home health service (06) | DRG 683 ==
LOC: EDUNIT# → EDBD → N.ED 12:21 → N.EDINP 15:01 → SUPCPDRO 15:01 → SUATTDRO 15:01 → N.ICU 15:01 → N.EDINP 15:19 → N.ICU 16:08 → N.ED 16:30 → N.ICU 16:30 → N.5E 06-02 09:26
PROVIDERS: ADMIT Hospitalist; ATTEND Hospitalist

== ENCOUNTER 2017-11-15 16:16 | Inpatient (IN) ==
[2017-11-15] MEDS ORDERED: ALUM/MAG/SIMETH/LIDO VISC 1:1 30 ML BOTTLE PO STA (16:57)
[2017-11-15] MEDS ORDERED: HYDROmorphone 2 MG/1 ML VIAL IV STA (16:57)
[2017-11-15] MEDS ORDERED: PANTOPRAZOLE 40 MG VIAL IV STA (16:57)
[2017-11-15] MEDS ORDERED: ONDANSETRON 4 MG/2 ML VIAL IV STA (16:57)
[2017-11-15 18:14] LABS: Basophils % 0.2 % (0.0-0.8); Hematocrit 31.7 VOL% (35.7-47.0); Hemoglobin 10.6 GM/DL (12.0-16.0); Immature Granulocytes % 0.2 %; Immature Granulocytes Absolute 0.01 #; Lymphocytes # 0.6 10*3/uL (1.4-4.0); Lymphocytes % 9.9 % (21.3-54.2); Mean Corpuscular HGB Conc 33.4 GM/DL (32-36); Mean Corpuscular Hemoglobin 31 PG (27-34); Mean Corpuscular Volume 93.2 FL (87-102); Mean Platelet Volume 12.3 FL (9.6-12.0); Monocytes # 0.3 10*3/uL (0.11-0.8); Neutrophils # 5.4 10*3/uL (1.4-7.4); Neutrophils % 84.7 % (38.7-73.9); Platelet Count 98 T/CUMM (130-400); Red Cell Distribution Width 14.2 % (9.3-17.3); White Blood Count 6.4 T/CUMM (4-12)
[2017-11-15 18:30] LABS: Ammonia 37 UMOL/L (11-32)
[2017-11-15 18:35] LABS: Alanine Aminotransferase 19 U/L (13-56); Albumin 2.5 G/DL (3.4-5.0); Alkaline Phosphatase 102 U/L (45-117); Amylase 39 U/L (25-115); Aspartate Amino Transferase 33 U/L (0-37); Blood Urea Nitrogen 11 MG/DL (7-18); Calcium 8.1 MG/DL (8.5-10.1); Glucose 108 MG/DL (74-106); Osmolality,Calculated 282.1 MOS/KG (273-304); Potassium 3.6 MMOL/L (3.5-5.1); Sodium 142 MMOL/L (136-145); Total Protein 7.4 G/DL (6.4-8.3)
[2017-11-15 18:44] LABS: Apearance,Urine CLEAR (Clear); Bacteria,Urine Occasional /HPF (Few); Bilirubin,Urine Negative (Negative); Blood, Urine Negative (Negative); Glucose,Urine (UA) Negative (Negative); Hyaline Casts,Urine 21 /LPF (0-3); Ketones,Urine Negative (Negative); Mucus,Urine Few /LPF (Occasional); Nitrite,Urine Negative (Negative); Protein,Urine 30 MG/DL; RBC,Urine 1 /HPF (0-4); Squamous Epithelial Cell,Urine Occasional /HPF (0-10); Urine Color Amber (Yellow); Urine Specific Gravity 1.018 (1.001-1.035); WBC,Urine 3 /HPF (0-6)
[2017-11-15] MEDS ORDERED: MAGNESIUM SULF RIDER 2 GM in PREMIX 1 EACH IV STA (18:50)
[2017-11-15 18:53] LABS: Barbiturates Screen,Urine Negative (Negative); Benzodiazepines Screen,Urine Negative (Negative); Cannabinoid Screen,Urine Positive (Negative); Opiate Screen,Urine Negative (Negative); Phencyclidine Screen,Urine Negative (Negative)
[2017-11-15 19:40] LABS: INR 1.3; PT Patient Result 13.1 SECS; Partial Thromboplastin Time 25.9 SECS (0-40)
[2017-11-15] MEDS: PIPERACILLIN/TAZOBACTAM 3,375 MG in SODIUM CHLORIDE 0.9% 100 ML IV SCH (20:29)
[2017-11-15] MEDS ORDERED: MAGNESIUM SULF RIDER 4 GM in PREMIX 1 EACH IV PRN (21:10)
[2017-11-15] MEDS ORDERED: MAGNESIUM SULF RIDER 2 GM in PREMIX 1 EACH IV PRN (21:10)
[2017-11-15] MEDS: MORPHINE 4 MG/1 ML VIAL IV PRN (22:00)
[2017-11-15] MEDS ORDERED: LACTULOSE 20 GM/30 ML UDCUP PO ONE (22:00)
[2017-11-15] MEDS: ONDANSETRON 4 MG/2 ML VIAL IV PRN (22:01)
[2017-11-15] MEDS: SODIUM CHLORIDE 0.9% 500 ML IV SCH (23:17)
[2017-11-16] MEDS: MORPHINE 4 MG/1 ML VIAL IV PRN ×6 (01:48→21:44)
[2017-11-16] MEDS: SODIUM CHLORIDE 0.9% 500 ML IV SCH (03:13)
[2017-11-16] MEDS: PIPERACILLIN/TAZOBACTAM 3,375 MG in SODIUM CHLORIDE 0.9% 100 ML IV SCH ×3 (03:27→18:58)
[2017-11-16] MEDS: LEVOTHYROXINE 100 MCG TABLET PO SCH (05:59)
[2017-11-16 06:06] LABS: Basophils % 0.3 % (0.0-0.8); Eosinophils % 0.1 % (0.00-10.9); Hematocrit 26.7 VOL% (35.7-47.0); Hemoglobin 9.1 GM/DL (12.0-16.0); Immature Granulocytes % 0.4 %; Immature Granulocytes Absolute 0.03 #; Lymphocytes % 15.1 % (21.3-54.2); Mean Corpuscular HGB Conc 34.1 GM/DL (32-36); Mean Corpuscular Hemoglobin 31 PG (27-34); Mean Corpuscular Volume 91.4 FL (87-102); Mean Platelet Volume 12.4 FL (9.6-12.0); Monocytes # 0.9 10*3/uL (0.11-0.8); Monocytes % 13.1 % (1.7-12.7); Neutrophils # 4.9 10*3/uL (1.4-7.4); Platelet Count 84 T/CUMM (130-400); Red Blood Count 2.92 MC/CUMM (3.8-5.5); Red Cell Distribution Width 14.7 % (9.3-17.3); White Blood Count 6.9 T/CUMM (4-12)
[2017-11-16 06:27] LABS: Albumin 2.2 G/DL (3.4-5.0); Bilirubin,Total 1.6 MG/DL (0.2-1.0); Calcium 7.6 MG/DL (8.5-10.1); Osmolality,Calculated 285.8 MOS/KG (273-304); Potassium 3.9 MMOL/L (3.5-5.1); Risk Ratio 2.05; Total Protein 6.4 G/DL (6.4-8.3); VLDL CHOLESTEROL 9.8 MG/DL
[2017-11-16 06:37] LABS: Band Neutrophils 3 % (0-10); Eosinophils 1 % (0-10); Lymphocytes 14 % (20-55); Segmented Neutrophils 70 % (50-85); Total Cells Counted 100
[2017-11-16 06:38] LABS: Anisocytosis 1+; Macrocytosis 1+; Platelet Estimate Decreased
[2017-11-16] MEDS: ONDANSETRON 4 MG/2 ML VIAL IV PRN ×2 (06:42→21:43)
[2017-11-16] MEDS ORDERED: LACTULOSE 20 GM/30 ML UDCUP PO SCH (09:00)
[2017-11-16] MEDS: DEXT 5% NACL 0.45% KCL 20 MEQ 20 MEQ/1,000 ML BAG IV SCH (09:20)
[2017-11-16] MEDS: PANTOPRAZOLE 40 MG VIAL IV SCH ×2 (09:20→21:23)
[2017-11-17] MEDS: DEXT 5% NACL 0.45% KCL 20 MEQ 20 MEQ/1,000 ML BAG IV SCH ×2 (03:55→23:43)
[2017-11-17] MEDS: PIPERACILLIN/TAZOBACTAM 3,375 MG in SODIUM CHLORIDE 0.9% 100 ML IV SCH ×3 (03:55→18:09)
[2017-11-17 05:23] LABS: Basophils % 0.5 % (0.0-0.8); Eosinophils # 0.1 10*3/uL (0.0-0.87); Hematocrit 26.8 VOL% (35.7-47.0); Hemoglobin 8.5 GM/DL (12.0-16.0); Immature Granulocytes % 0.5 %; Immature Granulocytes Absolute 0.03 #; Lymphocytes # 0.7 10*3/uL (1.4-4.0); Lymphocytes % 11.9 % (21.3-54.2); Mean Corpuscular HGB Conc 31.7 GM/DL (32-36); Mean Corpuscular Hemoglobin 31 PG (27-34); Mean Corpuscular Volume 97.1 FL (87-102); Mean Platelet Volume 12.4 FL (9.6-12.0); Monocytes # 0.6 10*3/uL (0.11-0.8); Monocytes % 10.2 % (1.7-12.7); Neutrophils # 4.5 10*3/uL (1.4-7.4); Neutrophils % 75.9 % (38.7-73.9); Platelet Count 78 T/CUMM (130-400); Red Blood Count 2.76 MC/CUMM (3.8-5.5)
[2017-11-17 05:47] LABS: Band Neutrophils 4 % (0-10); Lymphocytes 11 % (20-55); Segmented Neutrophils 80 % (50-85); Total Cells Counted 100
[2017-11-17 05:48] LABS: Burr Cells Few; Macrocytosis 2+; Platelet Estimate Decreased
[2017-11-17 06:04] LABS: Bilirubin,Total 4.6 MG/DL (0.2-1.0); Calcium 7.4 MG/DL (8.5-10.1); Osmolality,Calculated 283.3 MOS/KG (273-304); Potassium 3.8 MMOL/L (3.5-5.1); Total Protein 5.9 G/DL (6.4-8.3)
[2017-11-17] MEDS: MORPHINE 4 MG/1 ML VIAL IV PRN ×3 (07:02→18:01)
[2017-11-17] MEDS: PANTOPRAZOLE 40 MG VIAL IV SCH ×2 (08:36→20:59)
[2017-11-17] MEDS: ONDANSETRON 4 MG/2 ML VIAL IV PRN ×2 (18:07→21:31)
[2017-11-18 01:31] LABS: Basophils % 0.3 % (0.0-0.8); Eosinophils % 0.1 % (0.00-10.9); Hematocrit 24.5 VOL% (35.7-47.0); Immature Granulocytes % 0.8 %; Immature Granulocytes Absolute 0.06 #; Lymphocytes # 0.7 10*3/uL (1.4-4.0); Lymphocytes % 9.7 % (21.3-54.2); Mean Corpuscular HGB Conc 32.7 GM/DL (32-36); Mean Corpuscular Hemoglobin 31 PG (27-34); Mean Corpuscular Volume 93.9 FL (87-102); Mean Platelet Volume 11.6 FL (9.6-12.0); Monocytes # 0.7 10*3/uL (0.11-0.8); Monocytes % 9.8 % (1.7-12.7); Neutrophils # 5.6 10*3/uL (1.4-7.4); Neutrophils % 79.3 % (38.7-73.9); Platelet Count 70 T/CUMM (130-400); Red Blood Count 2.61 MC/CUMM (3.8-5.5); Red Cell Distribution Width 14.8 % (9.3-17.3); White Blood Count 7.1 T/CUMM (4-12)
[2017-11-18 01:49] LABS: Calcium 6.9 MG/DL (8.5-10.1); Osmolality,Calculated 279.5 MOS/KG (273-304); Potassium 4.1 MMOL/L (3.5-5.1)
[2017-11-18] MEDS: DEXT 5% NACL 0.45% KCL 20 MEQ 20 MEQ/1,000 ML BAG IV SCH (02:55)
[2017-11-18] MEDS: PIPERACILLIN/TAZOBACTAM 3,375 MG in SODIUM CHLORIDE 0.9% 100 ML IV SCH ×3 (02:56→19:33)
[2017-11-18] MEDS: MORPHINE 4 MG/1 ML VIAL IV PRN ×3 (04:48→17:08)
[2017-11-18] MEDS: LEVOTHYROXINE 100 MCG TABLET PO SCH (05:51)
[2017-11-18] MEDS: PANTOPRAZOLE 40 MG VIAL IV SCH ×2 (08:49→20:17)
[2017-11-18] MEDS: METOCLOPRAMIDE 10 MG/2 ML VIAL IV SCH (17:05)
[2017-11-19] MEDS: METOCLOPRAMIDE 10 MG/2 ML VIAL IV SCH ×3 (00:50→11:58)
[2017-11-19] MEDS: DEXT 5% NACL 0.45% KCL 20 MEQ 20 MEQ/1,000 ML BAG IV SCH ×3 (00:58→11:34)
[2017-11-19] MEDS: PIPERACILLIN/TAZOBACTAM 3,375 MG in SODIUM CHLORIDE 0.9% 100 ML IV SCH ×3 (03:46→19:00)
[2017-11-19] MEDS: MORPHINE 4 MG/1 ML VIAL IV PRN ×5 (04:33→23:14)
[2017-11-19 05:26] LABS: Basophils % 0.2 % (0.0-0.8); Eosinophils # 0.1 10*3/uL (0.0-0.87); Eosinophils % 1.5 % (0.00-10.9); Hematocrit 23.3 VOL% (35.7-47.0); Hemoglobin 7.9 GM/DL (12.0-16.0); Immature Granulocytes % 0.6 %; Immature Granulocytes Absolute 0.03 #; Lymphocytes # 0.7 10*3/uL (1.4-4.0); Lymphocytes % 15.2 % (21.3-54.2); Mean Corpuscular HGB Conc 33.9 GM/DL (32-36); Mean Corpuscular Hemoglobin 31 PG (27-34); Mean Platelet Volume 12.2 FL (9.6-12.0); Monocytes # 0.7 10*3/uL (0.11-0.8); Monocytes % 15.4 % (1.7-12.7); Neutrophils # 3.2 10*3/uL (1.4-7.4); Neutrophils % 67.1 % (38.7-73.9); Platelet Count 82 T/CUMM (130-400); Red Blood Count 2.56 MC/CUMM (3.8-5.5); Red Cell Distribution Width 14.4 % (9.3-17.3); White Blood Count 4.8 T/CUMM (4-12)
[2017-11-19 05:39] LABS: Calcium 7.3 MG/DL (8.5-10.1); Osmolality,Calculated 280.5 MOS/KG (273-304); Potassium 4.1 MMOL/L (3.5-5.1)
[2017-11-19 05:42] LABS: Albumin 1.6 G/DL (3.4-5.0); Bilirubin,Direct 2.04 MG/DL (0.0-0.20); Bilirubin,Indirect 0.8 MG/DL (0.0-1.0); Bilirubin,Total 2.8 MG/DL (0.2-1.0); Total Protein 5.3 G/DL (6.4-8.3)
[2017-11-19 05:49] LABS: Eosinophils 2 % (0-10); Hypochromasia 1+; Lymphocytes 8 % (20-55); Ovalocytes Slight; Platelet Estimate Decreased; Segmented Neutrophils 75 % (50-85); Total Cells Counted 100
[2017-11-19] MEDS: PANTOPRAZOLE 40 MG VIAL IV SCH (10:21)
[2017-11-19] MEDS ORDERED: FUROSEMIDE 20 MG/2 ML VIAL IV PRN (14:11)
[2017-11-19] MEDS ORDERED: SODIUM CHLORIDE 0.9% 1,000 ML IV PRN (14:11)
[2017-11-19] MEDS: METOCLOPRAMIDE 10 MG/10 ML UDCUP PO SCH ×2 (17:27→20:24)
[2017-11-19] MEDS: PANTOPRAZOLE 40 MG TABLET PO SCH (20:24)
[2017-11-20] MEDS ORDERED: FUROSEMIDE 20 MG/2 ML VIAL IV ONE (01:21)
[2017-11-20] MEDS: DEXT 5% NACL 0.45% KCL 20 MEQ 20 MEQ/1,000 ML BAG IV SCH ×2 (01:30→21:01)
[2017-11-20] MEDS: PIPERACILLIN/TAZOBACTAM 3,375 MG in SODIUM CHLORIDE 0.9% 100 ML IV SCH ×3 (02:02→18:32)
[2017-11-20] MEDS: PANTOPRAZOLE 40 MG TABLET PO SCH ×2 (06:01→18:32)
[2017-11-20] MEDS: LEVOTHYROXINE 100 MCG TABLET PO SCH (06:01)
[2017-11-20] MEDS: MORPHINE 4 MG/1 ML VIAL IV PRN ×3 (06:09→21:07)
[2017-11-20 07:18] LABS: Basophils % 0.5 % (0.0-0.8); Eosinophils # 0.1 10*3/uL (0.0-0.87); Eosinophils % 2.4 % (0.00-10.9); Hematocrit 31.5 VOL% (35.7-47.0); Immature Granulocytes % 1.6 %; Immature Granulocytes Absolute 0.09 #; Lymphocytes # 0.7 10*3/uL (1.4-4.0); Lymphocytes % 12.7 % (21.3-54.2); Mean Corpuscular HGB Conc 33.7 GM/DL (32-36); Mean Corpuscular Hemoglobin 31 PG (27-34); Mean Corpuscular Volume 92.1 FL (87-102); Mean Platelet Volume 11.3 FL (9.6-12.0); Monocytes # 0.9 10*3/uL (0.11-0.8); Neutrophils # 3.9 10*3/uL (1.4-7.4); Neutrophils % 66.8 % (38.7-73.9); Platelet Count 92 T/CUMM (130-400); Red Cell Distribution Width 14.8 % (9.3-17.3); White Blood Count 5.8 T/CUMM (4-12)
[2017-11-20 07:21] LABS: Red Blood Count 3.42 MC/CUMM (3.8-5.5)
[2017-11-20 07:22] LABS: Hemoglobin 10.6 GM/DL (12.0-16.0)
[2017-11-20 08:02] LABS: Eosinophils 3 % (0-10); Hypochromasia 1+; Lymphocytes 14 % (20-55); Ovalocytes Slight; Platelet Estimate Decreased; Segmented Neutrophils 63 % (50-85); Total Cells Counted 100
[2017-11-20] MEDS: METOCLOPRAMIDE 10 MG/10 ML UDCUP PO SCH ×4 (09:19→21:00)
[2017-11-20] MEDS: ONDANSETRON 4 MG/2 ML VIAL IV PRN (12:31)
[2017-11-21] MEDS: PIPERACILLIN/TAZOBACTAM 3,375 MG in SODIUM CHLORIDE 0.9% 100 ML IV SCH ×3 (03:53→18:42)
[2017-11-21] MEDS: MORPHINE 4 MG/1 ML VIAL IV PRN ×5 (04:07→21:46)
[2017-11-21 05:37] LABS: Basophils % 0.8 % (0.0-0.8); Eosinophils # 0.1 10*3/uL (0.0-0.87); Eosinophils % 2.8 % (0.00-10.9); Hematocrit 30.4 VOL% (35.7-47.0); Hemoglobin 10.1 GM/DL (12.0-16.0); Immature Granulocytes % 1.8 %; Immature Granulocytes Absolute 0.09 #; Lymphocytes # 0.9 10*3/uL (1.4-4.0); Lymphocytes % 18.3 % (21.3-54.2); Mean Corpuscular HGB Conc 33.2 GM/DL (32-36); Mean Corpuscular Hemoglobin 31 PG (27-34); Mean Corpuscular Volume 91.8 FL (87-102); Mean Platelet Volume 11.3 FL (9.6-12.0); Monocytes # 0.9 10*3/uL (0.11-0.8); Monocytes % 18.1 % (1.7-12.7); Neutrophils # 2.9 10*3/uL (1.4-7.4); Neutrophils % 58.2 % (38.7-73.9); Platelet Count 92 T/CUMM (130-400); Red Blood Count 3.31 MC/CUMM (3.8-5.5)
[2017-11-21 06:02] LABS: Band Neutrophils 1 % (0-10); Eosinophils 5 % (0-10); Hypochromasia Slight; Lymphocytes 15 % (20-55); Microcytosis Slight; Segmented Neutrophils 68 % (50-85); Total Cells Counted 100
[2017-11-21 06:03] LABS: Platelet Estimate Decreased
[2017-11-21] MEDS: PANTOPRAZOLE 40 MG TABLET PO SCH ×2 (06:09→21:39)
[2017-11-21] MEDS: METOCLOPRAMIDE 10 MG/10 ML UDCUP PO SCH ×4 (09:10→21:38)
[2017-11-21] MEDS: BISACODYL 5 MG TABLET PO SCH ×2 (14:34→21:44)
[2017-11-21] MEDS ORDERED: POLYETHYLENE GLYCOL POWDER 255 GM BOTTLE PO ONE (15:00)
[2017-11-21] MEDS: DEXT 5% NACL 0.45% KCL 20 MEQ 20 MEQ/1,000 ML BAG IV SCH (17:15)
[2017-11-22] MEDS: PIPERACILLIN/TAZOBACTAM 3,375 MG in SODIUM CHLORIDE 0.9% 100 ML IV SCH ×3 (02:41→21:07)
[2017-11-22] MEDS: BISACODYL 5 MG TABLET PO SCH (06:04)
[2017-11-22] MEDS: PANTOPRAZOLE 40 MG TABLET PO SCH ×2 (06:04→21:03)
[2017-11-22] MEDS: LEVOTHYROXINE 100 MCG TABLET PO SCH (06:04)
[2017-11-22] MEDS: MORPHINE 4 MG/1 ML VIAL IV PRN ×3 (06:08→14:48)
[2017-11-22] MEDS: METOCLOPRAMIDE 10 MG/10 ML UDCUP PO SCH (09:35)
[2017-11-22] MEDS: ERYTHROMYCIN BASE 250 MG TABLET PO SCH ×3 (09:38→21:02)
[2017-11-22 09:52] LABS: Calcium 7.7 MG/DL (8.5-10.1); Osmolality,Calculated 273.7 MOS/KG (273-304); Potassium 3.5 MMOL/L (3.5-5.1)
[2017-11-22] MEDS: DEXT 5% NACL 0.45% KCL 20 MEQ 20 MEQ/1,000 ML BAG IV SCH (17:14)
[2017-11-22] MEDS ORDERED: KETOROLAC 30 MG/1 ML VIAL IM ONE (20:41)
[2017-11-23] MEDS: PIPERACILLIN/TAZOBACTAM 3,375 MG in SODIUM CHLORIDE 0.9% 100 ML IV SCH (04:07)
[2017-11-23 04:09] LABS: Basophils % 0.7 % (0.0-0.8); Eosinophils # 0.1 10*3/uL (0.0-0.87); Eosinophils % 2.4 % (0.00-10.9); Hemoglobin 10.2 GM/DL (12.0-16.0); Immature Granulocytes % 2.1 %; Immature Granulocytes Absolute 0.12 #; Lymphocytes # 1.1 10*3/uL (1.4-4.0); Lymphocytes % 19.6 % (21.3-54.2); Mean Corpuscular HGB Conc 32.9 GM/DL (32-36); Mean Corpuscular Hemoglobin 31 PG (27-34); Mean Corpuscular Volume 93.1 FL (87-102); Mean Platelet Volume 11.2 FL (9.6-12.0); Monocytes # 0.9 10*3/uL (0.11-0.8); Monocytes % 15.9 % (1.7-12.7); Neutrophils # 3.4 10*3/uL (1.4-7.4); Neutrophils % 59.3 % (38.7-73.9); Platelet Count 101 T/CUMM (130-400); Red Blood Count 3.33 MC/CUMM (3.8-5.5); Red Cell Distribution Width 15.7 % (9.3-17.3); White Blood Count 5.8 T/CUMM (4-12)
[2017-11-23 04:57] LABS: Atypical Lymphocytes Few; Eosinophils 3 % (0-10); Hypochromasia Slight; Lymphocytes 16 % (20-55); Segmented Neutrophils 70 % (50-85); Total Cells Counted 100
[2017-11-23 04:58] LABS: Microcytosis Slight; Platelet Estimate Decreased
[2017-11-23] MEDS: PANTOPRAZOLE 40 MG TABLET PO SCH ×2 (06:04→18:26)
[2017-11-23] MEDS: DEXT 5% NACL 0.45% KCL 20 MEQ 20 MEQ/1,000 ML BAG IV SCH ×2 (08:41→08:42)
[2017-11-23] MEDS: LINACLOTIDE 145 MCG CAPSULE PO SCH (08:58)
[2017-11-23] MEDS: ERYTHROMYCIN BASE 250 MG TABLET PO SCH ×3 (08:59→20:59)
[2017-11-23] MEDS: ACETAMINOPHEN 500 MG TABLET PO PRN ×2 (10:00→17:20)
[2017-11-24] MEDS: ACETAMINOPHEN 500 MG TABLET PO PRN ×3 (02:12→14:20)
[2017-11-24 02:51] LABS: Basophils % 0.5 % (0.0-0.8); Eosinophils # 0.2 10*3/uL (0.0-0.87); Eosinophils % 2.6 % (0.00-10.9); Hematocrit 30.1 VOL% (35.7-47.0); Hemoglobin 10.2 GM/DL (12.0-16.0); Immature Granulocytes % 1.4 %; Immature Granulocytes Absolute 0.08 #; Lymphocytes # 1.3 10*3/uL (1.4-4.0); Lymphocytes % 21.6 % (21.3-54.2); Mean Corpuscular HGB Conc 33.9 GM/DL (32-36); Mean Corpuscular Hemoglobin 31 PG (27-34); Mean Corpuscular Volume 90.1 FL (87-102); Mean Platelet Volume 11.9 FL (9.6-12.0); Monocytes # 0.8 10*3/uL (0.11-0.8); Monocytes % 13.1 % (1.7-12.7); Neutrophils # 3.6 10*3/uL (1.4-7.4); Neutrophils % 60.8 % (38.7-73.9); Red Blood Count 3.34 MC/CUMM (3.8-5.5); Red Cell Distribution Width 15.8 % (9.3-17.3); White Blood Count 5.9 T/CUMM (4-12)
[2017-11-24 02:54] LABS: Platelet Count 99 T/CUMM (130-400)
[2017-11-24 03:23] LABS: Eosinophils 2 % (0-10); Lymphocytes 13 % (20-55); Segmented Neutrophils 82 % (50-85); Total Cells Counted 100
[2017-11-24 03:24] LABS: Anisocytosis 1+; Platelet Estimate Decreased; Polychromasia Few
[2017-11-24] MEDS: LEVOTHYROXINE 100 MCG TABLET PO SCH (06:09)
[2017-11-24] MEDS: LINACLOTIDE 145 MCG CAPSULE PO SCH (08:34)
[2017-11-24] MEDS: PANTOPRAZOLE 40 MG TABLET PO SCH (08:34)
[2017-11-24] MEDS: ERYTHROMYCIN BASE 250 MG TABLET PO SCH ×2 (08:34→14:20)
[2017-11-24 12:09] VITALS: BP 111/53
== END 2017-11-24 15:10 | disposition home or self-care (01) | DRG 389 ==
LOC: N.ED 16:16 → N.EDINP 21:00 → SUATTDRO 21:00 → N.4E 21:59
PROVIDERS: ADMIT Internal Medicine; ATTEND Internal Medicine

== ENCOUNTER 2019-09-08 18:19 | Observation (INO) ==
[2019-09-08] MEDS ORDERED: ONDANSETRON 4 MG/2 ML VIAL IV PRN ×2 (19:28→23:15)
[2019-09-08] MEDS ORDERED: LACTATED RINGERS 1,000 ML IV SCH (19:30)
[2019-09-08] MEDS ORDERED: ceFAZolin 1,000 MG VIAL ONE (20:41)
[2019-09-08 21:09] LABS: Albumin 2.6 G/DL (3.4-5.0); Bilirubin,Total 0.9 MG/DL (0.2-1.0); Calcium 8.4 MG/DL (8.5-10.1); Osmolality,Calculated 288.8 MOS/KG (273-304); Total Protein 6.7 G/DL (6.4-8.3)
[2019-09-08 21:17] LABS: INR 1.2; PT Patient Result 12.7 SECS (9.8-11.9)
[2019-09-08 21:22] LABS: Basophils % 0.7 % (0.0-0.8); Hematocrit 27.2 VOL% (35.7-47.0); Hemoglobin 8.8 GM/DL (12.0-16.0); Immature Granulocytes % 0.3 %; Immature Granulocytes Absolute 0.01 #; Lymphocytes % 33.2 % (21.3-54.2); Mean Corpuscular HGB Conc 32.4 GM/DL (32-36); Mean Corpuscular Volume 89.8 FL (87-102); Mean Platelet Volume 12.5 FL (9.6-12.0); Monocytes % 12.7 % (1.7-12.7); Neutrophils % 52.1 % (38.7-73.9); Platelet Count 65 T/CUMM (130-400); Red Blood Count 3.03 MC/CUMM (3.8-5.5); Red Cell Distribution Width 15.7 % (9.3-17.3); White Blood Count 2.9 T/CUMM (4-12)
[2019-09-08] MEDS ORDERED: MORPHINE 4 MG/1 ML VIAL IV STA (21:43)
[2019-09-08] MEDS ORDERED: MORPHINE 10 MG/1 ML VIAL ONE (21:48)
[2019-09-08] MEDS ORDERED: propofoL 200 MG/20 ML VIAL IV ONE (22:02)
[2019-09-08] MEDS ORDERED: PHENYLEPHRINE 1 MG/10 ML SYRINGE IV ONE (22:02)
[2019-09-08] MEDS ORDERED: SEVOFLURANE 1 UNIT/15 MINUTE INH ONE (22:02)
[2019-09-08] MEDS ORDERED: LIDOCAINE 2% 5 ML VIAL ONE (22:02)
[2019-09-08] MEDS ORDERED: SUCCINYLCHOLINE 200 MG/10 ML VIAL ONE (22:02)
[2019-09-08] MEDS ORDERED: ONDANSETRON 4 MG/2 ML VIAL ONE (22:02)
[2019-09-08 22:04] LABS: Hematocrit 27.7 VOL% (35.7-47.0); Hemoglobin 8.9 GM/DL (12.0-16.0)
[2019-09-08] MEDS ORDERED: NICOTINE 21 MG/24 HR PATCH TRANSDERM PRN (23:15)
[2019-09-08] MEDS ORDERED: diphenhydrAMINE CAP 25 MG CAPSULE PO PRN (23:15)
[2019-09-08] MEDS ORDERED: GLUCAGON 1 MG VIAL IM PRN (23:15)
[2019-09-08] MEDS ORDERED: hydrALAZINE 20 MG/1 ML VIAL IV PRN (23:15)
[2019-09-08] MEDS ORDERED: DEXTROSE 50% 25 GM/50 ML VIAL IV PRN (23:15)
[2019-09-08] MEDS ORDERED: ALBUTEROL 2.5 MG/3 ML NEB RESP TX PRN (23:15)
[2019-09-08] MEDS ORDERED: PROMETHAZINE 25 MG/1 ML VIAL IM PRN (23:15)
[2019-09-08] MEDS ORDERED: DOCUSATE SODIUM 100 MG CAPSULE PO PRN (23:15)
[2019-09-09] MEDS: PANTOPRAZOLE 40 MG VIAL IV SCH ×2 (00:16→11:57)
[2019-09-09] MEDS: SODIUM CHLORIDE 0.9% 1,000 ML IV SCH ×3 (00:20→12:07)
[2019-09-09] MEDS: MORPHINE 4 MG/1 ML VIAL IV PRN ×2 (04:13→12:05)
[2019-09-09 04:47] LABS: Basophils % 0.5 % (0.0-0.8); Eosinophils # 0.1 10*3/uL (0.0-0.87); Eosinophils % 1.6 % (0.00-10.9); Hemoglobin 7.9 GM/DL (12.0-16.0); Immature Granulocytes % 0.3 %; Immature Granulocytes Absolute 0.01 #; Lymphocytes # 1.3 10*3/uL (1.4-4.0); Lymphocytes % 34.5 % (21.3-54.2); Mean Corpuscular HGB Conc 31.6 GM/DL (32-36); Mean Corpuscular Volume 90.9 FL (87-102); Mean Platelet Volume 12.6 FL (9.6-12.0); Monocytes % 12.1 % (1.7-12.7); Platelet Count 58 T/CUMM (130-400); Red Blood Count 2.75 MC/CUMM (3.8-5.5); Red Cell Distribution Width 15.8 % (9.3-17.3); White Blood Count 3.7 T/CUMM (4-12)
[2019-09-09 05:08] LABS: Calcium 7.8 MG/DL (8.5-10.1); Osmolality,Calculated 290.7 MOS/KG (273-304)
[2019-09-09 05:13] LABS: Hypochromasia 1+
[2019-09-09 05:14] LABS: Microcytosis 1+; Ovalocytes Slight; Platelet Estimate Decreased
[2019-09-09] MEDS ORDERED: LEVOTHYROXINE 100 MCG TABLET PO SCH (06:30)
[2019-09-09] MEDS: ceFAZolin 1,000 MG in SYRINGE 1 EACH IV SCH ×2 (08:35→14:41)
[2019-09-09] MEDS ORDERED: FERROUS SULFATE 325 MG TABLET PO SCH (09:00)
[2019-09-09] MEDS ORDERED: PROPRANOLOL 10 MG TABLET PO SCH (09:00)
[2019-09-09] MEDS ORDERED: LACTULOSE 20 GM/30 ML UDCUP PO SCH (09:00)
[2019-09-09] MEDS ORDERED: FUROSEMIDE 20 MG TABLET PO SCH (09:00)
[2019-09-09 11:34] VITALS: BP 124/73
[2019-09-09] MEDS ORDERED: SPIRONOLACTONE 50 MG TABLET PO SCH (21:00)
== END 2019-09-09 15:35 | disposition home or self-care (01) ==
LOC: EDUNIT# → EDBD → N.EDINP 18:19 → N.ED 18:19 → N.TELES 21:39 → SUATTDRO 23:11 → N.TELES 23:17
PROVIDERS: ADMIT Internal Medicine; ATTEND Internal Medicine